=== PATIENT | male | born 1965 | race Asian ===

== ENCOUNTER 2024-04-06 20:47 | Inpatient (IN) | payer OTHER ==
[~2024-04-06] VITALS: Ht 182.9 cm; Wt 74.4 kg
[2024-04-06 21:16] VITALS: BP_SYST 135; PULSE 89; RESP 17; TEMP 98.4; O2SAT 97
[2024-04-06] MEDS: KETOROLAC TROMETHAMINE 30 MG VIAL IM ONE (22:59)
[2024-04-06] MEDS: ACETAMINOPHEN 500 MG TABLET PO ONE (23:01)
[2024-04-06 23:50] LABS: BASOPHILS % (AUTO) 0.2 % (0.0-2.0); EOSINOPHILS % (AUTO) 0.2 % (0.0-4.0); HEMATOCRIT 39.6 % (36-54); HEMOGLOBIN 13.7 g/dL (14.0-18.0); LYMPHOCYTES # (AUTO) 1.1 K/uL (1.0-5.5); LYMPHOCYTES % (AUTO) 9.5 % (20.5-51.5); MEAN CORPUSCULAR HEMOGLOBIN 30 pg (27-31); MEAN CORPUSCULAR HGB CONC 35 % (32-36); MEAN CORPUSCULAR VOLUME 85 fL (79.0-98.0); MONOCYTES # (AUTO) 0.8 K/uL (0.0-1.0); NEUTROPHILS # (AUTO) 10.1 K/uL (1.8-7.7); NEUTROPHILS % (AUTO) 83.1 % (40.0-70.0); PLATELET COUNT (AUTO) 139 K/uL (130-430); RED BLOOD CELL COUNT(AUTO) 4.65 MIL/uL (4.2-6.2); RED CELL DISTRIBUTION WIDTH 13.1 % (9.0-15.0); WHITE BLOOD COUNT (AUTO) 12.1 K/uL (4.8-10.8)
[2024-04-07 00:14] LABS: CALCIUM 8.7 mg/dL (8.4-11.0); CREATININE 1.02 mg/dL (0.55-1.30); POTASSIUM 3.7 mmol/L (3.5-5.1)
[2024-04-07] MEDS: metroNIDAZOLE 500 mg/NS 100 ML IV ONE (06:51)
[2024-04-07 07:33] LABS: BILIRUBIN,URINE 1+ (NEGATIVE); BLOOD, URINE 1+ (NEGATIVE); CLARITY/URINE CLEAR (CLEAR); COLOR,URINE YELLOW (YELLOW); GLUCOSE,URINE NEGATIVE (NEGATIVE); KETONES,URINE NEGATIVE (NEGATIVE); LEUKOCYTE ESTERASE ,URINE NEGATIVE (NEGATIVE); NITRITE, URINE NEGATIVE (NEGATIVE); PH,URINE 6.5 (5.0-8.0); PROTEIN URINE TRACE (NEGATIVE)
[2024-04-07 07:34] LABS: BACTERIA,URINE None Seen /HPF (None Seen); UROBILINOGEN,URINE 0.2 (0.2-1.0); WBC,URINE 0-3 /HPF (0-3)
[2024-04-07] MEDS ORDERED: TRAM50TA2 PO (07:38)
[2024-04-07] MEDS ORDERED: cefTRIAXone 1 GM VIAL ONE (08:12)
[2024-04-07] MEDS: cefTRIAXone 1 GM in D5W 50 ML IV ONE (08:21)
[2024-04-07] MEDS ORDERED: LORazepam 2 MG/ML VIAL IVP PRN (09:45)
[2024-04-07] MEDS ORDERED: ACETAMINOPHEN 325 MG TABLET PO PRN (09:45)
[2024-04-07] MEDS ORDERED: HYDROcodone/ACETAMIN 5-325 MG TAB (NORCO/ VICODIN) PO PRN (09:45)
[2024-04-07] MEDS ORDERED: HYDROcodone/ACETAMIN 10-325 MG TAB PO PRN (09:45)
[2024-04-07] MEDS ORDERED: NALOXONE HCL 0.4 MG/ML AMP (NARCAN) IVP PRN ×2 (09:45)
[2024-04-07] MEDS ORDERED: ONDANSETRON HCL 4 MG/2 ML VIAL IVP PRN (09:45)
[2024-04-07 10:06] LABS: BASOPHILS % (AUTO) 0.2 % (0.0-2.0); EOSINOPHILS # (AUTO) 0.1 K/uL (0.0-0.4); EOSINOPHILS % (AUTO) 1.4 % (0.0-4.0); HEMATOCRIT 40.6 % (36-54); HEMOGLOBIN 13.9 g/dL (14.0-18.0); LYMPHOCYTES # (AUTO) 1.2 K/uL (1.0-5.5); LYMPHOCYTES % (AUTO) 17.9 % (20.5-51.5); MEAN CORPUSCULAR HEMOGLOBIN 29 pg (27-31); MEAN CORPUSCULAR HGB CONC 34 % (32-36); MEAN CORPUSCULAR VOLUME 86 fL (79.0-98.0); MONOCYTES # (AUTO) 0.4 K/uL (0.0-1.0); MONOCYTES % (AUTO) 5.8 % (1.7-9.3); NEUTROPHILS # (AUTO) 4.9 K/uL (1.8-7.7); NEUTROPHILS % (AUTO) 74.7 % (40.0-70.0); PLATELET COUNT (AUTO) 138 K/uL (130-430); RED BLOOD CELL COUNT(AUTO) 4.75 MIL/uL (4.2-6.2); RED CELL DISTRIBUTION WIDTH 13.2 % (9.0-15.0); WHITE BLOOD COUNT (AUTO) 6.5 K/uL (4.8-10.8)
[2024-04-07 10:24] LABS: CALCIUM 8.8 mg/dL (8.4-11.0); CREATININE 1.05 mg/dL (0.55-1.30); POTASSIUM 3.7 mmol/L (3.5-5.1)
[2024-04-07 10:33] VITALS: BP_SYST 126; PULSE 62; RESP 17; TEMP 97; O2SAT 97
[2024-04-07 10:50] VITALS: BP_SYST 126; PULSE 62; RESP 17; TEMP 97
[2024-04-07] MEDS: cefTRIAXone 1 GM IVPB PREMIX 50 ML IV SCH (14:38)
[2024-04-07] MEDS: VANCOMYCIN HCL 1,000 MG in NS 250 ML IV SCH (14:39)
[2024-04-07 16:27] VITALS: BP_SYST 134; PULSE 63; RESP 16; TEMP 97; O2SAT 100
[2024-04-07] MEDS: NORMAL SALINE 5 ML DISP.SYRIN IVF SCH (17:02)
[2024-04-07 20:05] VITALS: BP_SYST 155; PULSE 64; RESP 17; TEMP 97.4; O2SAT 96
[2024-04-07 22:20] VITALS: O2SAT 96
[2024-04-08 00:49] VITALS: BP_SYST 140; PULSE 53; RESP 18; TEMP 97.2; O2SAT 97
[2024-04-08 05:13] LABS: ERYTHROCYTE SEDIMENTATION RATE 8 MM/HR (0-15)
[2024-04-08 05:30] LABS: BASOPHILS % (AUTO) 0.5 % (0.0-2.0); EOSINOPHILS # (AUTO) 0.2 K/uL (0.0-0.4); EOSINOPHILS % (AUTO) 3.5 % (0.0-4.0); HEMATOCRIT 38.5 % (36-54); HEMOGLOBIN 13.2 g/dL (14.0-18.0); LYMPHOCYTES # (AUTO) 1.7 K/uL (1.0-5.5); LYMPHOCYTES % (AUTO) 27.5 % (20.5-51.5); MEAN CORPUSCULAR HEMOGLOBIN 29 pg (27-31); MEAN CORPUSCULAR HGB CONC 34 % (32-36); MEAN CORPUSCULAR VOLUME 85 fL (79.0-98.0); MONOCYTES # (AUTO) 0.5 K/uL (0.0-1.0); MONOCYTES % (AUTO) 8.4 % (1.7-9.3); NEUTROPHILS # (AUTO) 3.7 K/uL (1.8-7.7); NEUTROPHILS % (AUTO) 60.1 % (40.0-70.0); PLATELET COUNT (AUTO) 147 K/uL (130-430); RED BLOOD CELL COUNT(AUTO) 4.53 MIL/uL (4.2-6.2); WHITE BLOOD COUNT (AUTO) 6.1 K/uL (4.8-10.8)
[2024-04-08 05:56] LABS: CALCIUM 8.3 mg/dL (8.4-11.0); CREATININE 0.9 mg/dL (0.55-1.30); POTASSIUM 3.7 mmol/L (3.5-5.1); TOTAL BILIRUBIN 0.5 mg/dL (0.0-1.0); TOTAL PROTEIN, SERUM 6.4 g/dL (6.4-8.3)
[2024-04-08 08:07] VITALS: BP_SYST 132; PULSE 56; RESP 18; TEMP 96.4; O2SAT 96
[2024-04-08] MEDS ORDERED: TRAM50TA2 PO (09:36)
[2024-04-08] MEDS ORDERED: CLIN-142 PO (09:36)
[2024-04-08] MEDS ORDERED: LEVO-62 PO (09:36)
[2024-04-08 10:05] VITALS: O2SAT 96
[2024-04-08 11:33] VITALS: BP_SYST 132; PULSE 56; RESP 18; TEMP 96.9; O2SAT 96
== END 2024-04-08 15:26 | disposition home or self-care (01) | DRG 872 ==
LOC: SED 20:47 → SMU 04-07 07:33
PROVIDERS: ADMIT Preventive Medicine Preventive Medicine/Occupational Environmental Medicine; ATTEND Preventive Medicine Preventive Medicine/Occupational Environmental Medicine
DX: A41.9 Sepsis, unspecified organism (principal); L03.315 Cellulitis of perineum; E83.52 Hypercalcemia; E88.09 Other disorders of plasma-protein metabolism, not elsewhere classified; L73.9 Follicular disorder, unspecified; R79.89 Other specified abnormal findings of blood chemistry; D72.829 Elevated white blood cell count, unspecified
CPT/HCPCS: 36415; 80048; 80053; 81000; 81001; 81015; 85025; 85651; 87040; 96372; 99285; J0696; J1885; J3370; J3490; J7050; Q9967